=== PATIENT | male | born 1990 | race Hispanic/Latino ===

== ENCOUNTER 2017-10-14 14:47 | Emergency (ER) | payer OTHER ==
--- NOTE | 2017-10-14 17:26 | CT ---
PROCEDURE: CT HEAD WITHOUT CONTRAST. HISTORY: injury COMPARISON: None available. TECHNIQUE: Axial computed tomography images were obtained through the head/brain without intravenous contrast. Radiation dose: Total exam DLP = 1086.23 mGy-cm. This CT exam was performed using one or more of the following dose reduction techniques: Automated exposure control, adjustment of the mA and/or kV according to patient size, and/or use of iterative reconstruction technique. FINDINGS: HEMORRHAGE: No intracranial hemorrhage. BRAIN: No mass effect or edema. No atrophy or chronic microvascular ischemic changes. VENTRICLES: Unremarkable. No hydrocephalus. CALVARIUM: Unremarkable. PARANASAL SINUSES: Unremarkable as visualized. No significant inflammatory changes. MASTOID AIR CELLS: Unremarkable as visualized. No inflammatory changes. OTHER FINDINGS: None. IMPRESSION: Evidence of acute intracranial hemorrhage intracranial collection mass effect or midline shift.
--- NOTE | 2017-10-14 17:49 | CT ---
PROCEDURE: CT Cervical Spine without contrast HISTORY: <injury> COMPARISON: None available. TECHNIQUE: Axial computed tomography images were obtained of the cervical spine without the use of intravenous contrast. Coronal and sagittal reformatted images were created and reviewed. Radiation dose: Total exam DLP = 501.12 mGy-cm. This CT exam was performed using one or more of the following dose reduction techniques: Automated exposure control, adjustment of the mA and/or kV according to patient size, and/or use of iterative reconstruction technique. FINDINGS: VERTEBRAE: No fracture. Normal alignment. No destructive bony lesion. DISCS/SPINAL CANAL/NEURAL FORAMINA: No significant central canal or neural foraminal stenosis. Discs heights are grossly preserved. PARASPINAL SOFT TISSUES: Unremarkable. OTHER FINDINGS: None. IMPRESSION: Unremarkable CT of the cervical spine.
--- NOTE | 2017-10-14 17:53 | C.PDOC ---
History Of Present Illness 27 year old male presents to the ED for medical evaluation after sustaining a high fall at work earlier today. Patient states he fell off a beam from a height of around 10 feet and landed onto his back. At present time, patient is complaining of some discomfort over his anterior chest wall and to his left hand. Patient denies LOC, syncope, headache, dizziness, vision change, nausea, vomiting, neck pain, abdominal pain, denies obvious deformity, weakness, sensory or vascular deficits to B/L UEs and LEs. At the time of evaluation, AAO# 3, not in any apparent distress. - HPI Time Seen by Provider: 10/14/17 15:42 Chief Complaint (Nursing): Trauma History Per: Patient History/Exam Limitations: no limitations Onset/Duration Of Symptoms: Hrs Location Of Injury: Left: Hand, Posterior: Back Additional History Per: Patient Past Medical History Reviewed: Historical Data, Nursing Documentation, Vital Signs Vital Signs: Last Vital Signs Temp 97.3 F L 10/14/17 18:23 Pulse 85 10/14/17 18:23 Resp 16 10/14/17 18:23 BP 128/73 10/14/17 18:23 Pulse Ox 98 10/14/17 18:23 - Medical History PMH: No Chronic Diseases Surgical History: No Surg Hx Family History: States: Unknown Family Hx - Social History Hx Alcohol Use: Yes Hx Substance Use: No - Immunization History Hx Tetanus Toxoid Vaccination: No Hx Influenza Vaccination: No Hx Pneumococcal Vaccination: No Review Of Systems Cardiovascular: Positive for: Chest Pain (discomfort over anterior chest wall ) Gastrointestinal: Negative for: Nausea, Vomiting, Abdominal Pain Musculoskeletal: Positive for: Hand Pain (left) Neurological: Negative for: Weakness, Numbness, Headache, Other (LOC, syncope ) Physical Exam - Physical Exam Appears: Non-toxic, No Acute Distress Skin: Normal Color, Warm, Dry, No Ecchymosis Head: Normacephalic, Other (small contusion to right temporal area. no palpable deformity, no open wound noted.) Eye(s): bilateral: PERRL Ear(s): Bilateral: Normal Nose: No Discharge, No Epistaxis, No Deformity, No Tenderness, No Septal Hematoma Oral Mucosa: Moist, No Drooling, No Trismus Tongue: Normal Appearing Lips: Normal Appearing Throat: No Drooling Neck: Trachea Midline, No Midline Cervical Tenderness, No Paracervical Tenderness, No Step Off Deformity, Supple Chest: Symmetrical, No Deformity, Tenderness (over anterior chest wall, bilaterally . No palpable deformity.), No Ecchymosis, No Subcutaneous Emphysema Cardiovascular: Rhythm Regular, No Murmur Respiratory: No Decreased Breath Sounds, No Accessory Muscle Use, No Rales, No Rhonchi, No Stridor, No Wheezing Gastrointestinal/Abdominal: Soft, No Tenderness, No Distention, No Guarding, No Rebound Back: No Vertebral Tenderness, No Paraspinal Tenderness Extremity: Normal ROM (B/L UEs and LEs.), Tenderness (over ulnar aspect of left hand ), Capillary Refill (less than 2 seconds ), No Deformity, No Swelling Neurological/Psych: Oriented x3, Normal Speech, Normal Cognition, Normal Motor, Normal Sensation, Normal Reflexes Gait: Steady ED Course And Treatment O2 Sat by Pulse Oximetry: 100 (on RA ) Pulse Ox Interpretation: Normal Progress Note: CT Cervical Spine, CT Chest, CT Head, and left hand XR ordered and reviewed. Motrin PO administered. On re-evaluation, pt is afebrile, hemodynamicaly stable. NOn-toxic. Ambulatory in Ed with stable gait. PulsEOx 98% RA. Head: AT/NC.neck: Supple, (-) midline tenderness. ENT: no acute findings. Lungs: CTA B/L, BS equal B/L. Abd: benign, (-) guarding, (-) rebound. FAROM of B/L UEs and Les. Neurologicaly intact. All imaging review and appears without acute findings. No obvious deformity noted, no ecchymoses noted. Pt has clinical findings c/w high fall, head injury, chest wall strain, left hand contusion. Pt and family, who at bedside, advised OBS 48 hoyrs for any sign of head injury or other sign of trauma-return to ed immediately for re- eval. ref. to f/u with PMD, ortho in 2-3 days for re-eavl. Disposition Counseled Patient/Family Regarding: Studies Performed, Diagnosis, Need For Followup, Rx Given - Disposition Referrals: [facility] [Outside] Disposition: HOME/ ROUTINE Disposition Time: 17:50 Condition: STABLE Additional Instructions: NO PHYSICAL ACTIVITY FOR 1 WEEK TAKE MEDICATION FOR PAIN PRESCRIBED NEED OBSERVE 48 HOURS FOR ANY SIGN OF HEAD INJURY-RETURN TO ED IF ANY WORSENING OR NEW CHANGES. FOLLOW UP WITH PMD IN 2-3 DAYS FOR RE-EVALUATION. Prescriptions: Ibuprofen [Motrin Tab] 400 mg PO Q6 #20 tab Methocarbamol [Robaxin] 500 mg PO TID #14 tab Instructions: Head Injury (ED), Blunt Chest Trauma (ED), Back Pain (ED) Forms: [employer] (Citizen [place]) - Clinical Impression Clinical Impression: Head injury, Chest wall contusion, Back contusion, Fall from high place - PA / CALL CENTER DIRECTOR / Resident Statement MD/DO has reviewed & agrees with the documentation as recorded. - Scribe Statement The provider has reviewed the documentation as recorded by the Scribe (Jeannette Arriaga) All medical record entries made by the Scribe were at my direction and personally dictated by me. I have reviewed the chart and agree that the record accurately reflects my personal performance of the history, physical exam, medical decision making, and the department course for this patient. I have also personally directed, reviewed, and agree with the discharge instructions and disposition.
--- NOTE | 2017-10-14 17:54 | CT ---
PROCEDURE: CT Chest without contrast HISTORY: injury COMPARISON: None. TECHNIQUE: Contiguous axial images were obtained through the chest without intravenous contrast enhancement. Sagittal and coronal reconstructions were performed. Radiation dose (DLP): 386.44 mGy-cm. This CT exam was performed using one or more of the following dose reduction techniques: Automated exposure control, adjustment of the mA and/or kV according to patient size, and/or use of iterative reconstruction technique. FINDINGS: LUNGS: Clear lungs. Visualized airway clear. MEDIASTINUM: Unremarkable thoracic aorta. No aneurysm. Normal sized heart. Main pulmonary artery unremarkable. No vascular congestion. No lymphadenopathy. PLEURA: No pleural fluid. No pneumothorax. BONES: No fracture. No destructive lesion. UPPER ABDOMEN: Grossly unremarkable. OTHER FINDINGS: None. IMPRESSION: Unremarkable non-contrast enhanced CT of the chest.
[2017-10-14 18:24] VITALS: BP 128/73; PULSE 85; RESP 16; TEMP 97.3
--- NOTE | 2017-10-15 09:57 | RAD ---
PROCEDURE: Left Hand Radiographs. HISTORY: INJURY COMPARISON: None. FINDINGS: BONES: Normal. No fracture. JOINTS: Normal. No osteoarthritic changes. SOFT TISSUES: Normal. OTHER FINDINGS: None. IMPRESSION: Normal left hand radiographs.
[2017-10-18 15:58] VITALS: O2SAT 100
== END 2017-10-14 18:38 | disposition home or self-care (01) ==
LOC: C.ER 14:47
DX: S20.229A Contusion of unspecified back wall of thorax, initial encounter (principal); S20.212A Contusion of left front wall of thorax, initial encounter; S20.211A Contusion of right front wall of thorax, initial encounter; S00.83XA Contusion of other part of head, initial encounter; W17.89XA Other fall from one level to another, initial encounter; Y92.89 Other specified places as the place of occurrence of the external cause; Y99.0 Civilian activity done for income or pay